=== PATIENT | female | born 1965 | race Caucasian/White ===

== ENCOUNTER 2020-03-15 10:04 | Emergency (ER) | payer OTHER, SELFPAY ==
[2020-03-15 10:24] VITALS: BP 139/79; PULSE 107; RESP 16; TEMP 37.1; O2SAT 100
--- NOTE | 2020-03-15 10:28 | ED.GENADULT ---
HPI - General Adult General Chief complaint: Skin/Abscess/Foreign Body Stated complaint: Bite Time Seen by Provider: 03/15/20 10:28 Source: patient and RN notes reviewed Mode of arrival: ambulatory Limitations: no limitations History of Present Illness HPI narrative: This is a 54 years old female presented office for evaluations of insect bite of her left forearm. She did not witness to insect but she felt the stung 2 yesterday. Reported lesion is very itchy, red and hard. She took antihistamine last night with topical steroid and Neosporin on affected area. No treatment prior to arrival, patient afraid to mask her symptoms. Td is up-to-date. Related Data Allergies Allergy/AdvReac Type Severity Reaction Status Date / Time albuterol Allergy Hives Verified 03/15/20 11:03 Penicillins Allergy Hives Verified 03/15/20 11:03 Sulfa (Sulfonamide Allergy Hives Verified 03/15/20 11:03 Antibiotics) Review of Systems Review of Systems: Narrative: CONSTITUTIONAL: Denies fever or feeling ill CARDIOVASCULAR: Denies chest pain, palpitation RESPIRATORY: Denies dyspnea GASTROINTESTINAL: Denies abdominal pain, nausea, vomiting SKIN: Reports insect bite to her left forearm MUSCULOSKELETAL: Denies bone pain NEUROLOGIC: Denies lightheaded All other systems reviewed are negative, except as documented in HPI. FOR[facility]LY [facility] Past Medical History Medical History (Updated 03/15/20 @ 11:10 by AZAEL Lentz) History of leukemia Social History Social History Gender identity (if verbalized by the patient): Female Comments At time of signature, I agree with nursing past medical, surgical, social and family history. There is no relevant family history pertinent to the presenting complaint. Exam Narrative: Exam Narrative: GENERAL: This is a well-nourished, well-developed patient, in no apparent distress. NECK: Neck supple, non-tender without lymphadenopathy, masses or thyromegaly. CARDIOVASCULAR: Regular rate and rhythm without murmurs, gallops, or rubs. RESPIRATORY: Clear to auscultation. Breath sounds equal bilaterally. No wheezes, rales, or rhonchi. GASTROINTESTINAL: Abdomen soft, non-tender, nondistended. Bowel sounds are active. No hepato-splenomegaly, or palpable masses. No guarding. SKIN: left anterior forearm noted a localize reaction to insect bite with no lymphadenititis or secondary cellulitis. NEURO: awake, alert, and oriented to person, place and time. There were no obvious focal neurologic abnormalities. Steady gait EXTREMITIES: Normal range of motion. No edema. Agatha Coma Scale Eye Opening: Spontaneous 4 Wheeler Coma Scale Motor: Obeys Commands 6 Agatha Coma Scale Verbal: Oriented 5 Course Vital Signs Vital signs: Vital Signs Temperature 98.7 F 03/15/20 10:24 Pulse Rate 107 H 03/15/20 10:24 Respiratory Rate 16 03/15/20 10:24 Blood Pressure 139/79 03/15/20 10:24 Pulse Oximetry 100 03/15/20 10:24 Temperature 98.7 F 03/15/20 10:24 Pulse Rate 107 H 03/15/20 10:24 Respiratory Rate 16 03/15/20 10:24 Blood Pressure 139/79 03/15/20 10:24 Pulse Oximetry 100 03/15/20 10:24 Medical Decision Making MDM Narrative Medical decision making narrative: Discharge instructions reviewed with patient, as well as provided in writing per nursing staff. The instructions also include specific and strict return/GO TO THE ER as well as f/u information. All questions have been answered, and the patient deny any further questions with discharge and discharge plan. Differential Diagnosis Differential Diagnosis: Contact/allergic dermatitis, atopic dermatitis, psoriasis, eczema, cellulitis, tinea, erythema multiforme, viral exanthem, drug eruption Vital Signs Vital Signs: Vital Signs Temperature 98.7 F 03/15/20 10:24 Pulse Rate 107 H 03/15/20 10:24 Respiratory Rate 16 03/15/20 10:24 Blood Pressure 139/79 03/15/20 10:24 Pulse Oxi
== END 2020-03-15 11:07 | disposition home or self-care (01) ==
PROVIDERS: Emergency Provider Nurse Practitioner; PCP Internal Medicine
DX: S50.862A Insect bite (nonvenomous) of left forearm, initial encounter (principal); W57.XXXA Bitten or stung by nonvenomous insect and other nonvenomous arthropods, initial encounter; C95.91 Leukemia, unspecified, in remission
CPT/HCPCS: 99203; G0463